=== PATIENT | female | born 1985 | race African-American/Black ===

== ENCOUNTER 2016-10-30 16:14 | Emergency (ER) | payer OTHER ==
[~2016-10-30] VITALS: Wt 73.6 kg
[2016-10-30 16:36] VITALS: Wt 73.6 kg
--- NOTE | 2016-10-30 17:12 | ERD ---
ER Documentation Chief Complaint Date/Time DATE: 10/30/16 TIME: 17:11 Chief Complaint spider bite? to left side of abd HPI This 31-year-old female presents to emergency department for evaluation of let lower hip pustule edematous and erythremic, symptoms x 2 days, pt treated suspected spider bite with warm compresses symptoms has worsen pt reports pain has spread to left pubis and left low back patient reports abdominal muscle cramping, back cramping and pelvic cramping denies fevers reports chills, denies hx of skin infections . pt living in a hotel felt something bite her 2 days ago. Patient states she had window open and that it is poorly insulated did not see the insect that bit her. Denies nausea, vomiting, fever, chills ROS All systems reviewed and are negative except as per history of present illness. Medications Home Meds Active Scripts Ibuprofen* (Motrin*) 400 Mg Tab, 400 MG PO Q6, #30 TAB Prov:ANTONIA,ROMINA 10/30/16 Diazepam* (Valium*) 5 Mg Tablet, 5 MG PO Q8 for MUSCLE SPASMS, #10 TAB Prov:ANTONIA,ORMINA 10/30/16 Sulfamethoxazole/Trimethoprim* (Bactrim Ds* Tablet) 1 Each Tablet, 1 TAB PO BID , #14 TAB Prov:ANTONIA,ROMINA 10/30/16 Cephalexin* (Keflex*) 500 Mg Capsule, 500 MG PO QID for 10 Days, CAP Prov:ATNONIA,ROMINA 10/30/16 Allergies Allergies: Coded Allergies: No Known Allergy (Unverified , 10/30/16) PMhx/Soc History of Surgery: No Anesthesia Reaction: No Hx Neurological Disorder: No Hx Respiratory Disorders: No Hx Cardiac Disorders: No Hx Psychiatric Problems: No Hx Miscellaneous Medical Probl: No Hx Alcohol Use: No Hx Substance Use: No Hx Tobacco Use: No Physical Exam Vitals Vital Signs Date Time Temp Pulse Resp B/P Pulse Ox O2 Delivery O2 Flow Rate FiO2 10/30/16 16:36 98.7 101 20 127/64 98 Vitals stable, triage notes reviewed Physical Exam Const: Well-appearing well-nourished well-hydrated in obvious discomfort no acute distress Head: Eyes: Normal Conjunctiva PERRLA, EOMI ENT: Neck: Resp: Respirations even and unlabored, no respiratory distress Cardio: Abd: Soft, left pelvis above left hip erythemic, with pustule, fluctuating and nonfluctuating, patient is tender horizontally to left pubis and left back. Skin: Small 0.5 pustule left pelvis above hip on erythemic edematous firm and fluctuating 3 cm base, hyper sensitive to touch. Back: Left lumbar tenderness Ext: Neur: Awake and alert Psych: Normal Mood and Affect Results 24 hrs Current Medications Medications (Trade) Dose Ordered Sig/David Route PRN Reason Start Time Stop Time Status Last Admin Dose Admin Diazepam (Valium) 5 mg ONCE ONCE PO 10/30/16 17:30 10/30/16 17:31 DC 10/30/16 17:49 Acetaminophen/ Hydrocodone Bitart (Kittery (5/325)) 1 tab ONCE ONCE PO 10/30/16 17:30 10/30/16 17:31 DC 10/30/16 17:49 Lidocaine (Xylocaine 2% (Mdv) 20 ml) 20 ml ONCE ONCE INJ 10/30/16 17:30 10/30/16 17:31 DC Cephalexin (Keflex) 500 mg ONCE ONCE PO 10/30/16 18:30 10/30/16 18:31 DC 10/30/16 18:30 Trimethoprim/ Sulfamethoxazole (Bactrim (Ds)) 1 tab ONCE ONCE PO 10/30/16 18:30 10/30/16 18:31 DC 10/30/16 18:30 Diphtheria/ Tetanus/Acell Pertussis (Adacel) 0.5 ml ONCE ONCE IM* 10/30/16 19:00 10/30/16 19:01 DC 10/30/16 18:49 Procedures/MDM Abscess Incision and Drainage with irrigation by me: Location: Left pelvis above hip Anesthesia: Local 2% Lidocaine Technique: Irrigated normal saline. Disrupted loculations w/ instrumentation Packin cm packing placed Complications: Neurovascularly intact post procedure Informed consent obtained. The area was prepped in the usual manner and the skin overlying the abscess was anesthetized with 2 cc of 2% plain lidocaine. Using aseptic technique the area was sharply incised using an 11 blade, spontaneous drainage of bloody purulent discharge. Exploration cavity without tunneling. Wound copiously irrigated with sterile saline. Packing was inserted. Bulky pressure dressing applied. Patient alerted to watch for signs of infection (redness, pus, pain, increased swelling, or fever) return to office if such occurs. This 31-year-old female presents to emergency department for evaluation of abscessed insect bite. Patient is hypersensitive to palpation, afebrile with muscle spasming and cramping. Patient has no signs of cellulitis, or necrotizing fasciitis patient treated with Valium 5 mg, Kittery 5/325, and incision and drainage as outlined above. 48 hour wound check. Scar minimization instructions given. Patient's skin symptoms have stabilized while they have been evaluated in the department and are appropriate for outpatient care and work up. Patient started on Keflex 500 mg and Bactrim double strength in emergency department will be discharged home with Keflex 500 4 times daily 10 days, Bactrim double strength 1 tab p.o. twice daily 7 days. Valium 5 mg count of 10, and ibuprofen 400 mg as needed pain. Patient is stable with no new complaints during ER course, clinically there is no current evidence to suggest sepsis, deep space infection, or foreign body. Bacterial or viral meningitis, acute abdomen, acute coronary syndromes, pulmonary embolism or any other emergent condition appearing to require further evaluation or hospitalization. I feel the patient is stable for discharge at this time. I have discussed results, examination findings, the treatment plan with the patient and family present prior to discharge. Indications for emergent reevaluation, side effects of medication were also discussed. All questions were answered. Patient verbalizes understanding and agrees with plan of care. Departure Diagnosis: Primary Impression: Insect bite Encounter type: initial encounter Qualified Code: W57.XXXA - Insect bite, initial encounter Additional Impression: Abscess Condition: Good Patient Instructions: Abscess, Incision And Drainage, Insect Bites and Stings Referrals: [facility] Additional Instructions: Thank you for for coming to [facility] for your care today. Please ask your nurse or provider if you have questions about your care today and do not leave until all your questions have been answered. Please use any medications given as directed and follow-up with your doctor (or the doctor you were referred to) in the next 2-3 days. If you do not have a primary care doctor you may follow up at the [facility] (listed below). You may also use motrin and tylenol as needed for fever and/or pain unless instructed otherwise by your provider or nurse. Indications for more urgent follow-up have been discussed, but you may return to the Emergency Department at ANY time for any worrisome or worsening symptoms. If you have abdominal pain, please know that no test or exam you received is perfect and you should follow up within 8 hours for continued pain. If you had any imaging studies today, such as an X-Ray or CT Scan, these studies will be reviewed later by a radiologist. You will be called if there are important findings that were not identified today, so make sure the contact information you provided at registration is correct. If you received any narcotic pain control medicine today, such as Vicodin, Morphine or Dilaudid, your coordination and judgment may be affected for a number of hours. Please do not drive or operate heavy machinery, and you may want someone to assist you at home. If you were given a prescription for narcotic medication, be aware that it is very addictive- use sparingly and only if necessary. ROMINA KNIGHT Oct 30, 2016 17:10
[2016-10-30] MEDS ORDERED: HYDROCODONE/APAP (5/325) TAB PO ONE (17:30)
[2016-10-30] MEDS ORDERED: DIAZEPAM 5 MG TAB PO ONE (17:30)
[2016-10-30] MEDS ORDERED: LIDOCAINE 2% (MDV) 20 ML INJ INJ ONE (17:30)
[2016-10-30] MEDS ORDERED: CEPHALEXIN 500 MG CAP PO ONE (18:30)
[2016-10-30] MEDS ORDERED: TRIMETHOPRIM/SULFAMETHOX (DS) TAB PO ONE (18:30)
[2016-10-30] MEDS ORDERED: CEPH-443 PO (18:42)
[2016-10-30] MEDS ORDERED: SULF1TAB31 PO (18:42)
[2016-10-30] MEDS ORDERED: IBUP400T22 PO (18:43)
[2016-10-30] MEDS ORDERED: DIAZ-90 PO (18:43)
[2016-10-30] MEDS ORDERED: DIPHTH/TET/ACEL PERTUSS (ADULT) 0.5 ML VIAL IM* ONE (19:00)
== END 2016-10-30 19:01 | disposition home or self-care (01) ==
LOC: FTE 16:14
DX: S70.262A Insect bite (nonvenomous), left hip, initial encounter (principal); L02.416 Cutaneous abscess of left lower limb; W57.XXXA Bitten or stung by nonvenomous insect and other nonvenomous arthropods, initial encounter; Y92.9 Unspecified place or not applicable; Z23 Encounter for immunization
CPT/HCPCS: 10061; 90471; 90715; Z7502; Z7610

== ENCOUNTER 2017-02-25 10:04 | Emergency (ER) | payer OTHER ==
[~2017-02-25] VITALS: Ht 165.1 cm; Wt 76.7 kg
[~2017-02-25 10:04] MED LIST: CEPH-443 PO; DIAZ-90 PO; IBUP400T22 PO; SULF1TAB31 PO
[2017-02-25 10:07] VITALS: Ht 165.1 cm; Wt 76.7 kg
[2017-02-25] MEDS ORDERED: IBUPROFEN 800 MG TAB PO ONE (12:00)
[2017-02-25] MEDS ORDERED: SULF1TAB31 PO (13:53)
[2017-02-25] MEDS ORDERED: CEPH-443 PO (13:53)
[2017-02-25] MEDS ORDERED: IBUP800T25 PO (13:53)
--- NOTE | 2017-02-25 14:48 | ERD ---
ER Documentation Chief Complaint Chief Complaint lt breast pain x 5 days with yellowish discharge HPI 31-year-old female complaining of left breast pain 5 days. Patient states that started with left nipple feeling extremely hard and painful. Described the pain as burning like sensation. The area of "hardness" has grew over the past few days. Patient noticed a yellowish discharge leaking from the piercing site at her nipple. The piercing was done more than 10 years ago, she has not wore ring on her nipple for many years.. Denies fever or chills. Denies injury. Patient is not breast-feeding. ROS All systems reviewed and are negative except as per history of present illness. Medications Home Meds Active Scripts Ibuprofen* (Motrin*) 800 Mg Tab, 800 MG PO Q6H Y for PAIN AND OR ELEVATED TEMP, #30 TAB Prov:MISTI PACHECO TOPPER PACKER 02/25/17 Cephalexin* (Keflex*) 500 Mg Capsule, 500 MG PO QID for 7 Days, CAP Prov:MISTI PACHECO TOPPER PACKER 02/25/17 Sulfamethoxazole/Trimethoprim* (Bactrim Ds* Tablet) 1 Each Tablet, 1 TAB PO BID for 7 Days, TAB Prov:MISTI PACHECO TOPPER PACKER 02/25/17 Ibuprofen* (Motrin*) 400 Mg Tab, 400 MG PO Q6, #30 TAB Prov:ANTONIA,ROMINA 10/30/16 Diazepam* (Valium*) 5 Mg Tablet, 5 MG PO Q8 for MUSCLE SPASMS, #10 TAB Prov:ANTONIA,ROMINA 10/30/16 Sulfamethoxazole/Trimethoprim* (Bactrim Ds* Tablet) 1 Each Tablet, 1 TAB PO BID , #14 TAB Prov:ANTONIA,ROMINA 10/30/16 Cephalexin* (Keflex*) 500 Mg Capsule, 500 MG PO QID for 10 Days, CAP Prov:ANTONIA,ROMINA 10/30/16 Allergies Allergies: Coded Allergies: No Known Allergy (Unverified , 02/25/17) PMhx/Soc History of Surgery: Yes (I&D) Anesthesia Reaction: No Hx Neurological Disorder: No Hx Respiratory Disorders: No Hx Cardiac Disorders: No Hx Psychiatric Problems: No Hx Miscellaneous Medical Probl: No Hx Alcohol Use: No Hx Substance Use: No Hx Tobacco Use: No Smoking Status: Never smoker Physical Exam Vitals Vital Signs Date Time Temp Pulse Resp B/P Pulse Ox O2 Delivery O2 Flow Rate FiO2 02/25/17 10:07 98.8 76 16 146/86 100 Physical Exam General: Well-developed, well-nourished, conscious and coherent, in no distress Skin: Warm and dry without rash, good texture and turgor Head: Normocephalic without evidence of trauma Eyes: Sclera and conjunctivae normal; pupils equal, round, and reactive to light; extraocular movements are intact Chest: Normal AP diameter. Good expansion without retractions. Nontender. Lungs are clear to auscultate bilaterally with good tidal volume Heart: Regular rate and rhythm. No murmur, rub, or gallops heard Breasts: Central aspect the left breast and left nipple tender, left nipple swollen. No fluctuance or discharge. Extremities: Full range of motion. Good strength bilaterally. No clubbing, cyanosis, or edema. Peripheral pulses are intact. Sensation intact Neuro: Alert and oriented 4, GCS 15. Cranial nerves grossly intact. Motor and sensory exams nonfocal. Moves all extremities. Speech clear. Gait normal Results 24 hrs Current Medications Medications (Trade) Dose Ordered Sig/David Route PRN Reason Start Time Stop Time Status Last Admin Dose Admin Ibuprofen (Motrin) 800 mg ONCE ONCE PO 02/25/17 12:00 02/25/17 12:01 DC 02/25/17 11:55 Procedures/MDM Well-appearing 31-year-old female presented ED was left breast pain 5 days. I suspect patient has a cellulitis of the left breast. Soft tissue ultrasound is ordered to rule out abscess. The radiologist states initially assigned to the ultrasound did not want to read it because it involves breast tissue. While awaiting for official results, Dr. Araya performed a bedside ultrasound on the patient. Dr. Araya states the patient does not have any large well-formed abscess at this time. He recommends antibiotic treatment. I doubt breast cancer. Patient appears well, stable for discharge and outpatient management. Medical decision making shared with patient and family. Education provided to patient and family. Patient and family expressed understanding of the plan. Medications on discharge: Ibuprofen, Bactrim DS, Keflex. Follow-up: Return to eating 2 days for recheck. Disclaimer: Inadvertent spelling and grammatical errors are likely due to EHR/ dictation software use and do not reflect on the overall quality of patient care. Also, please note that the electronic time recorded on this note does not necessarily reflect the actual time of the patient encounter. Departure Diagnosis: Primary Impression: Cellulitis of left breast Condition: Stable Patient Instructions: Cellulitis Additional Instructions: Return to this facility in 2 DAYS for a follow-up exam.Return sooner if your condition worsens. MISTI PACHECO NP Feb 25, 2017 14:48
--- NOTE | 2017-02-26 11:35 | RADRPT ---
PROCEDURE: Ultrasound of the left breast. CLINICAL INDICATION: Palpable lesion in the left breast nipple and the areolar region. TECHNIQUE: High-resolution sonography of the left breast at the site of the palpable lesion was pe rformed in the axial and sagittal planes. COMPARISON: None FINDINGS: There is no fluid collection or mass. There is mild heterogeneity of the breast parenchyma in the left breast 3 o'clock subareolar region. IMPRESSION: 1. Mild heterogeneity of the left breast 3 o'clock position subareolar region. 2. No evidence of abscess. 3. Any further management regarding the palpable lesion should be based on clinical grounds. RPTAT: QQ .Bryce Malone MD, MD Date Time Electronically viewed and signed by .Bryce Malone MD, MD on 02/26/2017 11:35 .R/
== END 2017-02-25 14:15 | disposition home or self-care (01) ==
LOC: FTE 10:04
DX: N61.0 Mastitis without abscess (principal)
CPT/HCPCS: 76536; Z7502; Z7610

== ENCOUNTER 2017-02-27 16:08 | Inpatient (IN) | payer OTHER ==
[~2017-02-27] VITALS: Ht 165.1 cm; Wt 77.1 kg
[~2017-02-27 16:08] MED LIST changes: +IBUP800T25 PO
[2017-02-27 18:34] VITALS: Ht 165.1 cm; Wt 77.1 kg
[2017-02-27 18:41] VITALS: BP 130/61; PULSE 81; RESP 20
[2017-02-27 19:19] VITALS: BP 128/75; RESP 16
[2017-02-27] MEDS: morphine 2 MG INJ IV PRN (19:28)
[2017-02-27 19:33] LABS: CALCIUM 8.8 mg/dl (8.4-10.2); CREATININE 1.23 mg/dl (0.44-1.00); MAGNESIUM 1.9 mg/dl (1.7-2.5); POTASSIUM 3.8 mmol/L (3.5-5.1)
[2017-02-27 19:36] LABS: BASOPHILS % 0.5 % (0.0-2.0); EOSINOPHILS # 0.3 10^3/ul (0.0-0.5); HEMATOCRIT 35.8 % (37.0-47.0); HEMOGLOBIN 12.2 g/dl (12.0-16.0); LYMPHOCYTES # 2.5 10^3/ul (0.8-2.9); LYMPHOCYTES % 30.4 % (15.0-51.0); MEAN CORPUSCULAR HEMOGLOBIN 30.7 pg (29.0-33.0); MEAN CORPUSCULAR HGB CONC 34.1 g/dl (32.0-37.0); MEAN CORPUSCULAR VOLUME 89.9 fl (82.0-101.0); MEAN PLATELET VOLUME 9.9 fl (7.4-10.4); MONOCYTE # 0.6 10^3/ul (0.3-0.9); MONOCYTES % 6.8 % (0.0-11.0); NEUTROPHIL # 4.7 10^3/ul (1.6-7.5); NEUTROPHILS % 58.1 % (39.0-77.0); PLATELET COUNT 256 10^3/UL (140-415); RED BLOOD COUNT 3.98 10^6/ul (4.20-5.40); RED CELL DISTRIBUTION WIDTH 12.8 % (11.5-14.5); WHITE BLOOD COUNT 8.1 10^3/ul (4.8-10.8)
[2017-02-28 01:51] VITALS: BP 110/66; RESP 16
[2017-02-28] MEDS: morphine 2 MG INJ IV PRN (07:03)
[2017-02-28 07:47] VITALS: BP 128/67; RESP 19
[2017-02-28] MEDS ORDERED: ACETAMINOPHEN 325 MG TAB PO PRN (09:00)
[2017-02-28] MEDS ORDERED: ALBUTEROL/IPRATROPIUM (NEB) 3 ML AMP HHN PRN (09:00)
[2017-02-28] MEDS ORDERED: NACL 0.9% 3 ML SYG IV SCH (09:00)
[2017-02-28] MEDS ORDERED: VANCOMYCIN IV PER PHARMACY XX SCH (09:00)
[2017-02-28] MEDS ORDERED: ONDANSETRON 4 MG INJ IV PRN (09:00)
--- NOTE | 2017-02-28 09:04 | HP ---
Date/Time of Note Date/Time of Note DATE: 02/28/17 TIME: 08:55 Assessment/Plan VTE Prophylaxis VTE Prophylaxis Intervention: SCD's Lines/Catheters IV Catheter Type (from Nrs): Peripheral IV Assessment/Plan Assessment/Plan 1. Left breast mastitis with early phlegmon -Broad-spectrum IV antibiotic -Culture from the nipple drainage -ID consult -I do not believe surgical evaluation is warranted at this time at the will place a consult based on clinical course 2. CKD, stable HPI/ROS Admit Date/Time Admit Date/Time Feb 27, 2017 at 17:49 Hx of Present Illness This is a 31-year-old female with a history of CKD who initially presented to [facility] complaining of left breast swelling and pain. She was transferred to [facility] for insurance reasons. She actually came to the ER here at [facility] 2 days ago for same issue. Breast ultrasound showed mild heterogeneity of the left breast 3 o' clock position subareolar region with no abscess. She was discharged with antibiotic. She said since her initial ER visit, she noted slightly worsening of her symptoms. She also reported a foul-smelling greenish has intermittently draining from her nipple. Ultrasound done at [facility] before transfer showed subareolar swelling and 3.7 cm revealed a hypoechoic area likely mastitis with early phlegmon but no fluid collection or abscess. PMH/Family/Social Social History Smoking Status: Never smoker Exam/Review of Systems Vital Signs Vitals Vital Signs Date Time Temp Pulse Resp B/P Pulse Ox O2 Delivery O2 Flow Rate FiO2 02/28/17 07:47 98.0 80 19 128/67 98 02/27/17 18:41 Room Air Intake and Output 02/27/17 02/27/17 02/28/17 15:00 23:00 07:00 Intake Total 600 ml Balance 600 ml Exam Constitutional: alert, oriented, well developed Head: atraumatic, normocephalic Eyes: EOMI, PERRL Respiratory: clear to auscultation, normal air movement Cardiovascular: nl pulses, regular rate and rhythm Gastrointestinal: non-tender, soft Extremities: normal pulses Additional Comments Breast: Mild areolar swelling with very mild overlying erythema. No nipple discharge. There is minimal tenderness Labs Result Diagram: 12/21/17 1850 12/21/17 1850 Medications Medications Current Medications Ondansetron HCl (Zofran Inj) 4 mg Q6H PRN IV NAUSEA AND/OR VOMITING; Start at 09:00 Acetaminophen (Tylenol Tab) 650 mg Q6H PRN PO PAIN LEVEL 1-3 OR FEVER; Start 02/28/17 at 09:00 Morphine Sulfate (morphine) 6 mg Q4H PRN PO SEVERE PAIN 7-10; Start 02/28/17 at 09:00 Enoxaparin Sodium 40 mg 40 mg DAILY SC ; Start 02/28/17 at 09:00 Piperacillin Sod/ Tazobactam Sod (Zosyn 3.375gm/ 50 ml (Pmx)) 50 ml @ 100 mls/ hr Q6 IVPB ; Start 02/28/17 at 09:00 CARLOS MENDOZA MD Feb 28, 2017 09:04
[2017-02-28] MEDS ORDERED: VANCOMYCIN 1.5 GM in DEXTROSE 5% 500 ML IVPB ONE (10:00)
[2017-02-28] MEDS: PIPER-TAZO 3.375 GM IV (PMX) 50 ML IVPB SCH ×3 (10:11→20:02)
[2017-02-28] MEDS: ENOXAPARIN 40 MG/0.4 ML SYG SC SCH (10:35)
[2017-02-28] MEDS: morphine LIQ (10 MG/5 ML) CUP PO PRN ×2 (14:07→20:02)
--- NOTE | 2017-02-28 14:19 | CONS ---
DATE OF ADMISSION: 02/27/2017 DATE OF CONSULTATION: 02/28/2017 TYPE OF CONSULTATION: Infectious Disease. REASON FOR CONSULTATION: Antibiotic management. HISTORY OF PRESENT ILLNESS: Seferino Leslie is a 31-year-old female with a history of chronic re nal disease. She presented to [facility] complaining of left breast swelling and pain and was transferred to [facility]. She had previously been at [facility] 2 d ays prior in the emergency room for the same issue. A breast ultrasound showed mild heterogeneity o f the left breast at 3 o'clock position subareolar region with no abscess. She was discharged with antibiotics. Since then she noted worsening of her symptoms. She noted a foul greenish smell with intermittent drainage from her nipple. Ultrasound at [facility] showed subareolar swelling and she also had a 3.7 cm hypoechoic area likely mastitis with early phlegmon, but no fluid collection or ab scess. PAST MEDICAL HISTORY: Operations as outlined. FAMILY HISTORY: Noncontributory. SOCIAL HISTORY: She does not smoke, drink or abuse drugs. ALLERGIES: NONE TO PENICILLIN, SULFA OR FOODS. MEDICATIONS: Per chart. REVIEW OF SYSTEMS: As per HPI. PHYSICAL EXAMINATION: GENERAL: The patient is a well-developed, well-nourished female, alert, responsive, in no acute dis tress. VITAL SIGNS: Stable. She is afebrile. SKIN: Without generalized rash. HEENT: Within normal limits. NECK: Supple. LYMPH NODES: None palpable. CHEST: Decreased breath sounds at the bases. HEART: Without murmur or gallop. BREASTS: Mild areolar swelling with overlying erythema without discharge from the nipple. ABDOMEN: Soft, nontender, without organosplenomegaly or masses. EXTREMITIES: Without cyanosis, clubbing, or edema. RECTAL AND GENITAL: Deferred. NEUROLOGICAL: No focal neurological abnormalities. ANCILLARY LABORATORY DATA: Her white count was 8.1, H and H of 12.2 and 35.8, platelet count 256,00 0. BUN and creatinine 11/1.23. IMPRESSION AND PLAN: The patient was started on vancomycin and also on Zosyn. I think orders were given to where they should be given to culture any discharge from the nipple. A surgical evaluation is being considered. I will dictate my findings to the hospitalist service. Dictated By: JOCELYNE PHELPS MD, JD/VINICIUS Conf#: [id number] [facility]#: [id number]
--- NOTE | 2017-02-28 15:10 | PN ---
Date/Time of Note Date/Time of Note DATE: 02/28/17 TIME: 15:10 Assessment/Plan VTE Prophylaxis VTE Prophylaxis Intervention: ambulation, SCD's Lines/Catheters IV Catheter Type (from Nrsg): Peripheral IV Assessment/Plan Chief Complaint/Hosp Course Subjective Patient still has pain in left breast Objective Physical exam General: Patient is laying in bed and answers questions appropriately Mentation: Patient is alert and oriented 4, Head: Normocephalic atraumatic Eyes: EOMI, pupils reactive to light Neck: Supple, nontender, midline Respiratory: Clear to auscultation bilaterally Cardiovascular: regular rate, no obvious murmurs Gastrointestinal: non-tender to palpation, bowel sounds heard. Neurological: Moves all extremities spontaneously Skin: No new skin lesions, left breast tender, no discharge seen Assessment and plan Left breast mastitis with early phlegmon -Broad spectrum IV antibiotics -Culture if possible from drainage, no drainage seen currently -Infectious disease consultation -If worsens will consider surgical consult Acute kidney injury versus CKD -Patient states that physicians have mentioned her kidney function in the past however does not know details. -We will attempt 1 L normal saline, will recheck in the a.m. Disposition -Antibiotics for now, ID recommendations appreciated -Follow-up in the a.m. Problems: Exam/Review of Systems Vital Signs Vitals Vital Signs Date Time Temp Pulse Resp B/P Pulse Ox O2 Delivery O2 Flow Rate FiO2 02/28/17 07:47 98.0 80 19 128/67 98 02/27/17 18:41 Room Air Intake and Output 02/27/17 02/27/17 02/28/17 14:59 22:59 06:59 Intake Total 600 ml Balance 600 ml Results Result Diagram: 02/27/17 1850 02/27/17 1850 Results 24 hrs Laboratory Tests Test 02/27/17 18:50 White Blood Count 8.1 Red Blood Count 3.98 L Hemoglobin 12.2 Hematocrit 35.8 L Mean Corpuscular Volume 89.9 Mean Corpuscular Hemoglobin 30.7 Mean Corpuscular Hemoglobin Concent 34.1 Red Cell Distribution Width 12.8 Platelet Count 256 Mean Platelet Volume 9.9 Neutrophils % 58.1 Lymphocytes % 30.4 Monocytes % 6.8 Eosinophils % 4.0 Basophils % 0.5 Nucleated Red Blood Cells % 0.0 Neutrophils # 4.7 Lymphocytes # 2.5 Monocytes # 0.6 Eosinophils # 0.3 Basophils # 0.0 Nucleated Red Blood Cells # 0.0 Sodium Level 140 Potassium Level 3.8 Chloride Level 106 Carbon Dioxide Level 23 Anion Gap 15 Blood Urea Nitrogen 11 Creatinine 1.23 H Glucose Level 80 Calcium Level 8.8 Magnesium Level 1.9 Medications Medications Current Medications Ondansetron HCl (Zofran Inj) 4 mg Q6H PRN IV NAUSEA AND/OR VOMITING; Start at 09:00 Acetaminophen (Tylenol Tab) 650 mg Q6H PRN PO PAIN LEVEL 1-3 OR FEVER; Start 02/28/17 at 09:00 Morphine Sulfate (morphine) 6 mg Q4H PRN PO SEVERE PAIN 7-10 Last administered on 02/28/17 14:07; Admin Dose 6 MG; Start 02/28/17 at 09:00 Enoxaparin Sodium 40 mg 40 mg DAILY SC Last administered on 02/28/17 10:35; Admin Dose 40 MG; Start 02/28/17 at 09:00 Piperacillin Sod/ Tazobactam Sod 50 ml @ 100 mls/hr Q6 IVPB Last administered on 02/28/17 14:59; Admin Dose 100 MLS/HR; Start 02/28/17 at 09:00 Vancomycin HCl/ Dextrose/Water (Vancocin/D5W) 150 ml @ 75 mls/hr Q12H IVPB ; Start 02/28/17 at 22:00 RIGOBERTO NICK Feb 28, 2017 15:10
[2017-02-28] MEDS ORDERED: SOD CHLORIDE 0.9% 1,000 ML IV ONE (15:30)
[2017-02-28 19:10] VITALS: BP 129/76; RESP 20
[2017-02-28] MEDS: VANCOMYCIN 750 MG in DEXTROSE 5% 150 ML IVPB SCH (22:07)
[2017-03-01] MEDS: PIPER-TAZO 3.375 GM IV (PMX) 50 ML IVPB SCH ×5 (01:17→23:52)
[2017-03-01 02:01] VITALS: BP 110/61; RESP 18
[2017-03-01 05:40] LABS: BASOPHILS % 0.4 % (0.0-2.0); EOSINOPHILS # 0.4 10^3/ul (0.0-0.5); EOSINOPHILS % 7.8 % (0.0-7.0); HEMATOCRIT 31.2 % (37.0-47.0); HEMOGLOBIN 10.6 g/dl (12.0-16.0); LYMPHOCYTES # 2.2 10^3/ul (0.8-2.9); LYMPHOCYTES % 40.5 % (15.0-51.0); MEAN CORPUSCULAR VOLUME 91.2 fl (82.0-101.0); MEAN PLATELET VOLUME 10.1 fl (7.4-10.4); MONOCYTE # 0.4 10^3/ul (0.3-0.9); NEUTROPHIL # 2.4 10^3/ul (1.6-7.5); NEUTROPHILS % 43.1 % (39.0-77.0); PLATELET COUNT 225 10^3/UL (140-415); RED BLOOD COUNT 3.42 10^6/ul (4.20-5.40); RED CELL DISTRIBUTION WIDTH 12.8 % (11.5-14.5); WHITE BLOOD COUNT 5.5 10^3/ul (4.8-10.8)
[2017-03-01 06:06] LABS: ALBUMIN 2.8 g/dl (3.3-4.9); ALBUMIN/GLOBULIN RATIO 0.84; CALCIUM 7.7 mg/dl (8.4-10.2); CREATININE 1.15 mg/dl (0.44-1.00); MAGNESIUM 1.9 mg/dl (1.7-2.5); PHOSPHORUS 3.9 mg/dl (2.5-4.9); POTASSIUM 3.7 mmol/L (3.5-5.1); TOTAL PROTEIN 6.1 g/dl (6.1-8.1)
[2017-03-01 08:46] VITALS: BP 105/71; RESP 18
[2017-03-01] MEDS: ENOXAPARIN 40 MG/0.4 ML SYG SC SCH (08:51)
[2017-03-01] MEDS: VANCOMYCIN 750 MG in DEXTROSE 5% 150 ML IVPB SCH ×2 (10:33→21:44)
[2017-03-01] MEDS: morphine LIQ (10 MG/5 ML) CUP PO PRN (11:01)
[2017-03-01] MEDS: SOD CHLORIDE 0.9% 1,000 ML IV SCH ×2 (12:38→22:00)
[2017-03-01 13:30] VITALS: BP 130/77; RESP 18
--- NOTE | 2017-03-01 17:52 | PN ---
DATE: 03/01/2017 SUBJECTIVE: No events overnight. The patient is awake, feels better. Looks comfortable, no fevers . PHYSICAL EXAMINATION: GENERAL: Well-developed, middle-aged woman who is in no distress. HEENT: Head atraumatic, normocephalic. Sclerae anicteric. Buccal mucosa pink. NECK: Supple. CHEST: Rise symmetrical. Breath sounds clear. HEART: S1, S2. ABDOMEN: Soft, bowel sounds present. EXTREMITIES: Without cyanosis. ASSESSMENT: 1. Left breast cellulitis, mastitis with ultrasound on 02/25/2017 revealed no evidence of abscess. 2. Acute, possibly on chronic kidney disease. PLAN: Left breast swelling and erythema is better today. We will continue her on current regimen a nd await for breast drainage cultures. Dictated By: JIMMIE ROCHA CARD WRITER HAND for JOCELYNE PHELPS MD NI/NTS Conf#: [id number] DID#: [id number] CC: RIGOBERTO NICK MD;*EndCC*
[2017-03-01 19:20] VITALS: BP 117/73; RESP 18
[2017-03-01] MEDS ORDERED: VANCOMYCIN 500MG/NS (PMX) 100 ML IVPB SCH (23:30)
[2017-03-02] MEDS: SOD CHLORIDE 0.9% 1,000 ML IV SCH (01:34)
[2017-03-02 01:47] VITALS: BP 113/77; RESP 18
[2017-03-02] MEDS: PIPER-TAZO 3.375 GM IV (PMX) 50 ML IVPB SCH ×3 (06:51→18:35)
[2017-03-02] MEDS: morphine LIQ (10 MG/5 ML) CUP PO PRN ×2 (06:51→11:14)
[2017-03-02 07:41] VITALS: BP 135/68; RESP 18
[2017-03-02] MEDS: VANCOMYCIN 1.25 GM in SODIUM CHLORIDE 0.45 % 250 ML IVPB SCH ×2 (09:11→22:07)
[2017-03-02] MEDS: ENOXAPARIN 40 MG/0.4 ML SYG SC SCH (09:20)
--- NOTE | 2017-03-02 11:51 | PN ---
Date/Time of Note Date/Time of Note DATE: 03/02/17 TIME: 11:49 Assessment/Plan VTE Prophylaxis VTE Prophylaxis Intervention: ambulation, SCD's Lines/Catheters IV Catheter Type (from Nrsg): Saline Lock Urinary Cath still in place: No Assessment/Plan Chief Complaint/Hosp Course Subjective Patient's left breast pain has markedly improved Objective Physical exam General: Patient is laying in bed and answers questions appropriately Mentation: Patient is alert and oriented 4, Head: Normocephalic atraumatic Eyes: EOMI, pupils reactive to light Neck: Supple, nontender, midline Respiratory: Clear to auscultation bilaterally Cardiovascular: regular rate, no obvious murmurs Gastrointestinal: non-tender to palpation, bowel sounds heard. Neurological: Moves all extremities spontaneously Skin: No new skin lesions, left breast mildly tender, no discharge seen Assessment and plan Left breast mastitis with early phlegmon -Broad spectrum IV antibiotics -Culture if possible from drainage, no drainage seen currently -Infectious disease consultation -If worsens will consider surgical consult Acute kidney injury versus CKD -Patient states that physicians have mentioned her kidney function in the past however does not know details. -improved, recheck in AM Disposition -Antibiotics for now, ID recommendations appreciated -final culture results pending, failed bactrim and keflex outpatient therapy before. -Follow-up in the a.m. Problems: Exam/Review of Systems Vital Signs Vitals Vital Signs Date Time Temp Pulse Resp B/P Pulse Ox O2 Delivery O2 Flow Rate FiO2 03/02/17 07:41 98.2 65 18 135/68 100 02/27/17 18:41 Room Air Intake and Output 03/01/17 03/01/17 03/02/17 15:00 23:00 07:00 Intake Total 150 ml 1510 ml 1920 ml Balance 150 ml 1510 ml 1920 ml Results Result Diagram: 03/01/17 0419 03/01/17 0419 Results 24 hrs Laboratory Tests Test 03/01/17 20:40 Vancomycin Level Trough 6.6 L Medications Medications Current Medications Ondansetron HCl (Zofran Inj) 4 mg Q6H PRN IV NAUSEA AND/OR VOMITING; Start at 09:00 Acetaminophen (Tylenol Tab) 650 mg Q6H PRN PO PAIN LEVEL 1-3 OR FEVER; Start 02/28/17 at 09:00 Morphine Sulfate (morphine) 6 mg Q4H PRN PO SEVERE PAIN 7-10 Last administered on 03/02/17 11:14; Admin Dose 6 MG; Start 02/28/17 at 09:00 Enoxaparin Sodium 40 mg 40 mg DAILY SC Last administered on 03/02/17 09:20; Admin Dose 40 MG; Start 02/28/17 at 09:00 Piperacillin Sod/ Tazobactam Sod 50 ml @ 100 mls/hr Q6 IVPB Last administered on 03/02/17 06:51; Admin Dose 100 MLS/HR; Start 02/28/17 at 09:00 Sodium Chloride 1,000 ml @ 100 mls/hr Q10H IV Last administered on 03/02/17 01:34; Admin Dose 100 MLS/HR; Start 03/01/17 at 12:00 Vancomycin HCl/ Sodium Chloride (Vancocin/Sodium Chloride) 250 ml @ 83.333 mls / hr Q12H IVPB Last administered on 03/02/17 09:11; Admin Dose 83.333 MLS/HR ; Start 03/02/17 at 10:00 Acetaminophen/ Hydrocodone Bitart ([place] (5/325)) 1 tab Q6H PRN PO PAIN; Start 03/02/17 at 11:30 RIGOBERTO NICK Mar 02, 2017 11:51
[2017-03-02 14:00] VITALS: BP 144/70; RESP 18
--- NOTE | 2017-03-02 17:33 | CONS ---
Date/Time of Note Date/Time of Note DATE: 03/02/17 TIME: 17:31 Assessment/Plan Assessment/Plan Chief Complaint/Hosp Course SUBJECTIVE: No events overnight. The patient is awake, looks comfortable, no fevers. PHYSICAL EXAMINATION: GENERAL: Well-developed, middle-aged woman who is in no distress. HEENT: Head atraumatic, normocephalic. Sclerae anicteric. Buccal mucosa pink. NECK: Supple. CHEST: Rise symmetrical. Breath sounds clear. HEART: S1, S2. ABDOMEN: Soft, bowel sounds present. EXTREMITIES: Without cyanosis. ASSESSMENT: 1. Left breast cellulitis==> improved. 2. Acute, possibly on chronic kidney disease. PLAN: Left breast swelling and erythema is much better. Ok dc on oral Clindamycin DW staf Problems: Consultation Date/Type/Reason Admit Date/Time Feb 27, 2017 at 17:49 Initial Consult Date Type of Consultation: ID Exam/Review of Systems Vital Signs Vitals Vital Signs Date Time Temp Pulse Resp B/P Pulse Ox O2 Delivery O2 Flow Rate FiO2 03/02/17 14:00 98.3 72 18 144/70 100 02/27/17 18:41 Room Air Intake and Output 03/01/17 03/01/17 03/02/17 15:00 23:00 07:00 Intake Total 150 ml 1510 ml 1920 ml Balance 150 ml 1510 ml 1920 ml Results Result Diagram: 03/01/17 0419 03/01/17 0419 Results 24 hrs Laboratory Tests Test 03/01/17 20:40 Vancomycin Level Trough 6.6 L Medications Medications Current Medications Ondansetron HCl (Zofran Inj) 4 mg Q6H PRN IV NAUSEA AND/OR VOMITING; Start at 09:00 Acetaminophen (Tylenol Tab) 650 mg Q6H PRN PO PAIN LEVEL 1-3 OR FEVER; Start 02/28/17 at 09:00 Morphine Sulfate (morphine) 6 mg Q4H PRN PO SEVERE PAIN 7-10 Last administered on 03/02/17 11:14; Admin Dose 6 MG; Start 02/28/17 at 09:00 Enoxaparin Sodium 40 mg 40 mg DAILY SC Last administered on 03/02/17 09:20; Admin Dose 40 MG; Start 02/28/17 at 09:00 Piperacillin Sod/ Tazobactam Sod 50 ml @ 100 mls/hr Q6 IVPB Last administered on 03/02/17 12:53; Admin Dose 100 MLS/HR; Start 02/28/17 at 09:00 Vancomycin HCl/ Sodium Chloride (Vancocin/Sodium Chloride) 250 ml @ 83.333 mls / hr Q12H IVPB Last administered on 03/02/17 09:11; Admin Dose 83.333 MLS/HR ; Start 03/02/17 at 10:00 Acetaminophen/ Hydrocodone Bitart ([place] (5/325)) 1 tab Q6H PRN PO PAIN; Start 03/02/17 at 11:30 JIMMIE ROCHA NP Mar 02, 2017 17:33
[2017-03-02] MEDS: HYDROCODONE/APAP (5/325) TAB PO PRN (19:53)
[2017-03-02 20:30] VITALS: BP 152/86; RESP 20
[2017-03-03] MEDS: PIPER-TAZO 3.375 GM IV (PMX) 50 ML IVPB SCH ×3 (01:10→12:00)
[2017-03-03 02:49] VITALS: BP 135/77; RESP 20
[2017-03-03 06:19] LABS: BASOPHILS % 0.6 % (0.0-2.0); EOSINOPHILS # 0.5 10^3/ul (0.0-0.5); EOSINOPHILS % 8.8 % (0.0-7.0); HEMATOCRIT 35.5 % (37.0-47.0); HEMOGLOBIN 11.9 g/dl (12.0-16.0); LYMPHOCYTES # 2.4 10^3/ul (0.8-2.9); LYMPHOCYTES % 46.3 % (15.0-51.0); MEAN CORPUSCULAR HEMOGLOBIN 30.6 pg (29.0-33.0); MEAN CORPUSCULAR HGB CONC 33.5 g/dl (32.0-37.0); MEAN CORPUSCULAR VOLUME 91.3 fl (82.0-101.0); MEAN PLATELET VOLUME 10.3 fl (7.4-10.4); MONOCYTE # 0.4 10^3/ul (0.3-0.9); MONOCYTES % 8.2 % (0.0-11.0); NEUTROPHIL # 1.8 10^3/ul (1.6-7.5); NEUTROPHILS % 35.9 % (39.0-77.0); PLATELET COUNT 281 10^3/UL (140-415); RED BLOOD COUNT 3.89 10^6/ul (4.20-5.40); RED CELL DISTRIBUTION WIDTH 12.4 % (11.5-14.5); WHITE BLOOD COUNT 5.1 10^3/ul (4.8-10.8)
[2017-03-03 06:44] LABS: CALCIUM 9.2 mg/dl (8.4-10.2); CREATININE 1.2 mg/dl (0.44-1.00); MAGNESIUM 1.8 mg/dl (1.7-2.5); PHOSPHORUS 3.7 mg/dl (2.5-4.9); POTASSIUM 4.4 mmol/L (3.5-5.1)
[2017-03-03 07:08] VITALS: BP 140/90; PULSE 92; RESP 19
[2017-03-03] MEDS: morphine LIQ (10 MG/5 ML) CUP PO PRN (07:08)
[2017-03-03 08:24] VITALS: BP 138/82; RESP 18
[2017-03-03] MEDS: ENOXAPARIN 40 MG/0.4 ML SYG SC SCH (09:46)
[2017-03-03] MEDS: HYDROCODONE/APAP (5/325) TAB PO PRN (09:48)
[2017-03-03] MEDS: VANCOMYCIN 1.25 GM in SODIUM CHLORIDE 0.45 % 250 ML IVPB SCH (10:00)
--- NOTE | 2017-03-03 10:39 | PDOCDIS ---
Discharge Instructions CONDITION Patient Condition: Stable HOME CARE INSTRUCTIONS: Diet Instructions: Regular FOLLOW UP/APPOINTMENTS Follow-up Plan 1.Follow up with primary care physician in 1 week If you don't have one please let someone know, we can give you resources that may help you pick one. You may also call your insurance company to assign one to you. Review your medication list with your nurse before leaving and if you need new prescriptions please let your nurse know. I may have made changes to your home medications or given you new prescriptions, please let your primary doctor know as well. Stay compliant with your medications and report any side effects to your PCP or pharmacist. Return to the ER if you have any concerns and cannot reach your doctors or call your insurance company, they usually have a nurse that can help you. 2. Call 911 or go to the nearest emergency room if experiencing loss of consciousness, dizziness, chest pain, shortness of breath, vomiting/abdominal pain, speech difficulties, motor weakness or any unusual symptoms. NAVJOT ODONNELL NP Mar 03, 2017 10:39
[2017-03-03] MEDS ORDERED: CLIN-73 PO (10:43)
[2017-03-03] MEDS ORDERED: HYDR-906 PO (10:43)
--- NOTE | 2017-03-03 10:50 | DS ---
Date/Time of Note Date/Time of Note DATE: 03/03/17 TIME: 10:50 Discharge Summary Admission/Discharge Info Admit Date/Time Feb 27, 2017 at 17:49 Discharge Date/Time Discharge Diagnosis Left breast mastitis with early phlegm. Resolved. Chronic kidney disease. Stable. Patient Condition: Stable Consults Dr. Perez, infectious disease. Hospital Course This is a 31-year-old female with a past medical history of chronic kidney disease, who was transferred from outside hospital for management of fall greenish intermittent drainage from left nipple started 2 days ago which did not respond to outpatient management with Keflex and Bactrim. Ultrasound at [place] showed subareolar swelling and she also had a 3.7 cm hypoechoic area likely mastitis with early phlegmon, but no fluid collection or abscess. Patient was continued on IV antibiotic per ID recommendations. She did not have any sepsis or leukocytosis. Her renal function remained at her baseline. Patient was given pain medications. Wound culture from left breast showed coagulase-negative staph. Patient was continued on appropriate antibiotic regimen. Her symptoms completely resolved. She did not require any incision and drainage. At this time, patient is stable for outpatient follow-up with continuation of oral clindamycin per ID recommendation. Patient was also recommended to abstain from multiple NSAIDs and pain medications that she takes at home to avoid acute kidney injury. Disposition: Home. Patient verbalized discharge instructions. Approximately 60 minutes was spent in coordinating the discharge on this patient. Home Meds Active Scripts Ibuprofen* (Motrin*) 800 Mg Tab, 800 MG PO Q6H Y for PAIN AND OR ELEVATED TEMP, #30 TAB Prov:MISTI PACHECO NP 02/25/17 Cephalexin* (Keflex*) 500 Mg Capsule, 500 MG PO QID for 7 Days, CAP Prov:MISTI PACHECO. ROUTE DELIVERY MANAGER 02/25/17 Sulfamethoxazole/Trimethoprim* (Bactrim Ds* Tablet) 1 Each Tablet, 1 TAB PO BID for 7 Days, TAB Prov:MISTI PACHECO ROUTE DELIVERY MANAGER 02/25/17 Ibuprofen* (Motrin*) 400 Mg Tab, 400 MG PO Q6, #30 TAB Prov:ANTONIA,ROMINA 10/30/16 Diazepam* (Valium*) 5 Mg Tablet, 5 MG PO Q8 for MUSCLE SPASMS, #10 TAB Prov:ANTONIA,ROMINA 10/30/16 Sulfamethoxazole/Trimethoprim* (Bactrim Ds* Tablet) 1 Each Tablet, 1 TAB PO BID , #14 TAB Prov:ANTONIAROMINA 10/30/16 Cephalexin* (Keflex*) 500 Mg Capsule, 500 MG PO QID for 10 Days, CAP Prov:ANTONIA,ROMINA 10/30/16 Follow-up Plan 1.Follow up with primary care physician in 1 week If you don't have one please let someone know, we can give you resources that may help you pick one. You may also call your insurance company to assign one to you. Review your medication list with your nurse before leaving and if you need new prescriptions please let your nurse know. I may have made changes to your home medications or given you new prescriptions, please let your primary doctor know as well. Stay compliant with your medications and report any side effects to your PCP or pharmacist. Return to the ER if you have any concerns and cannot reach your doctors or call your insurance company, they usually have a nurse that can help you. 2. Call 911 or go to the nearest emergency room if experiencing loss of consciousness, dizziness, chest pain, shortness of breath, vomiting/abdominal pain, speech difficulties, motor weakness or any unusual symptoms. Primary Care Provider [facility] Pending Labs Laboratory Tests Test 03/03/17 04:30 03/03/17 04:31 White Blood Count 5.110^3/ul (4.8-10.8) Red Blood Count 3.8910^6/ul (4.20-5.40) Hemoglobin 11.9g/dl (12.0-16.0) Hematocrit 35.5% (37.0-47.0) Mean Corpuscular Volume 91.3fl (82.0-101.0) Mean Corpuscular Hemoglobin 30.6pg (29.0-33.0) Mean Corpuscular Hemoglobin Concent 33.5g/dl (32.0-37.0) Red Cell Distribution Width 12.4% (11.5-14.5) Platelet Count 61259^3/UL (140-415) Mean Platelet Volume 10.3fl (7.4-10.4) Neutrophils % 35.9% (39.0-77.0) Lymphocytes % 46.3% (15.0-51.0) Monocytes % 8.2% (0.0-11.0) Eosinophils % 8.8% (0.0-7.0) Basophils % 0.6% (0.0-2.0) Nucleated Red Blood Cells % 0.0/100WBC (0.0-0.0) Neutrophils # 1.810^3/ul (1.6-7.5) Lymphocytes # 2.410^3/ul (0.8-2.9) Monocytes # 0.410^3/ul (0.3-0.9) Eosinophils # 0.510^3/ul (0.0-0.5) Basophils # 0.010^3/ul (0.0-0.1) Nucleated Red Blood Cells # 0.010^3/ul (0.0-0.0) Sodium Level 139mmol/L (135-144) Potassium Level 4.4mmol/L (3.5-5.1) Chloride Level 108mmol/L (97-110) Carbon Dioxide Level 22mmol/L (21-31) Anion Gap 13 (8-16) Blood Urea Nitrogen 9mg/dl (7-20) Creatinine 1.20mg/dl (0.44-1.00) Glucose Level 79mg/dl (70-220) Calcium Level 9.2mg/dl (8.4-10.2) Phosphorus Level 3.7mg/dl (2.5-4.9) Magnesium Level 1.8mg/dl (1.7-2.5) NAVJOT ODONNELL NP Mar 03, 2017 10:50
== END 2017-03-03 12:00 | disposition home or self-care (01) | DRG 601 ==
LOC: MS1 17:49
PROVIDERS: ADMIT Internal Medicine; ATTEND Internal Medicine
DX: N61.1 Abscess of the breast and nipple (principal); N18.9 Chronic kidney disease, unspecified
CPT/HCPCS: 80048; 80053; 80202; 83735; 84100; 85025; 87070; J1650; J2270; J2405; J2543; J3370; J7030; J7050; J7060

== ENCOUNTER 2017-03-07 11:16 | Outpatient (CLI) | END 2017-03-07 14:57 | disposition home or self-care (01) ==

== ENCOUNTER 2017-03-14 14:50 | Outpatient (CLI) | END 2017-03-14 16:40 | disposition home or self-care (01) ==